=== PATIENT | male | born 1945 | race Caucasian/White ===

== ENCOUNTER 2019-02-01 19:22 | Emergency (ER) | payer OTHER ==
[~2019-02-01] VITALS: Ht 175.3 cm; Wt 72.6 kg
[~2019-02-01 19:22] MED LIST: ASPIR 8181 MG PO; ATORVASTATIN CA10 MG PO; OMEPRAZOLE40 MG PO
--- OUTSIDE RECORDS SUMMARY | 2019-02-01 19:26 | XMS REPORT | Encounter Summary ---
Author Organization Unknown Address [address] [place] [address] Phone [phone] Care Team Providers Care Plate Painter Apprentice Name Role Phone Dr. Garfield Nugent 3 [phone] Garfield Nugent Jr, MD 3 [phone] Elmo Casas 129 [phone] Reason for Visit Quality BMI DEPRESSION FALL; Right leg problem; Advance Care Plan; Annual Alcohol Misuse Screening; AWV Annual Wellness Visit Male (VFP); Quality 65+; Tobacco Cessation Counseling Instructions 1. Adult health examination 2. Peripheral vascular disease 3. Varicose veins of lower extremity with inflammation vascular surgery referral 4. Hyperlipidemia atorvastatin 10 mg tablet CMP, serum or plasma lipid panel, serum 5. Malaise and fatigue CBC w/ auto diff TSH, serum or plasma urinalysis, dipstick 6. Advance directive discussed with patient advance care planning: care instructions 7. Depression screening 8. At risk for falls preventing falls: care instructions 9. Alcohol consumption screening 10. Nicotine dependence stopping smoking: care instructions advised to quit smoking deciding about using medicines to quit smoking 11. Body mass index 20-24 - normal learning about healthy weight Discussion Note: None recorded. Plan of Care Patient Instructions It was good to see you in the office today for your Medicare Annual Wellness Visit. You have been provided some information on healthy nutrition, including a diet rich in fruits and vegetables, minimizing simple carbohydrates, salt, and saturated fats. I want to encourage regular cardiovascular exercise such as walking at least 30 minutes daily, 5 times per week. Please remember to schedule any preventive health measures that we talked about today. You have also been provided education on fall prevention and community- based lifestyle interventions to help reduce health risks and promote healthy living in your Annual Wellness folder. Screening Recommendations 1. Vaccines Pneumococcal: discussed today and information sent with patient in their Annual Wellness health folder Influenza: discussed today and information sent with patient in their Annual Wellness health folder Shingles: discussed today and information sent with patient in their Annual Wellness health folder Tetanus: discussed today and information sent with patient in their Annual Wellness health folder 2. Prostate Screening: No screening necessary 3. Colorectal cancer Screening Colonoscopy: Your next one in: 5 months. Fecal Occult Blood: discussed today and information sent with patient in their Annual Wellness health folder 4. Bone Mass Measurement: No screening necessary 5. Eye Exam Screening: discussed today 6. Cholesterol Screening: Ordered 7. Diabetes Screening: Ordered Patient Instructions on Filing Advance Directives Be sure that you have easy access to your paperwork for your medical power of business attorney and advanced directives. Be sure that the designated person as well as important family members have copies of those forms as well. Please have contact information of your designee readily available. In the event of hospitalization, please bring those important documents with you for reference. "We agreed to the following goals towards reducing your alcohol habits: We agreed to reduce the number of beers by 1/4 by our next follow-up appointment. Handling Urges to drink Remind yourself of your reasons for making a change Talk it through with someone you trust Distract yourself with a healthy, alternative activity Challenge the thought that drives the urge Ride it out without giving in Leave high-risk situations quickly and gracefully" Quitting Tobacco Goals Quitting smoking is important for your health, but it is hard to do. We agreed to the following goals towards reducing your tobacco habits: Today we talked about how you are not thinking about quitting smoking. Since you want to smoke less, but are not ready to quit yet, we agreed that by your next appointment, you would stop smoking during one of your regular smoking times. Since your ready to quit smoking, we agreed that you would smoke your last cigarette on . Shelter Goals: *Permanently quit smoking *Improve lung function *Reduce my risk of getting emphysema, cancer and heart disease What can increase my chances of success for quitting smoking? *Regular exercise *Chew gum or hard candy *Identify triggers that lead to smoking, and establish new strategies for coping with these situations *Keep yourself busy *Contact additional resources for support, such as [employer] *Don't give up, even if you have a setback How can my healthcare team support me in quitting smoking? *Follow up visits to assess progress *Identify resources available to help you quit smoking *Consider medication to increase your chances of successfully quitting smoking *Referral to counseling for additional support Reminders Provider Appointments Est Patient 10/07/2018 9:45AM Garfield Nugent Jr, MD Lab CMP, Serum or Plasma 07/08/2018 [facility] Lipid Panel, Serum 07/08/2018 [facility] CBC W/ Auto Diff 07/08/2018 [facility] TSH, Serum or Plasma 07/08/2018 [facility] Urinalysis, Dipstick 07/08/2018 [facility] (p) Hobby Referral Vascular Surgery Referral 07/08/2018 Procedures None recorded. Surgeries None recorded. Imaging None recorded. Medications Name Start Date Adult Aspirin EC Low Strength 81 mg tablet,delayed release Take 1 tablet every day by oral route for 90 days. atorvastatin 10 mg tablet Take 1 tablet every day by oral route. gabapentin 300 mg capsule Take 2 capsules 3 times a day by oral route for 90 days. omeprazole 40 mg capsule,delayed release TAKE 1 CAPSULE BY MOUTH EVERY DAY Medications Administered None recorded. Vitals Height Weight BMI Blood Pressure 5 ft 9 in 165 lbs 24.4 kg/m2 110/64 mm[Hg] Lab Results None recorded. Allergies Code Code System Name Reaction Severity Status Onset NKDA Problems Name Status Onset Date Source Hyperlipidemia Active 06/15/2017 Internal Hemorrhoids Active 06/15/2017 Gastroesophageal Reflux Disease Active 06/15/2017 Hiatal Hernia Active 06/15/2017 Rosacea Active 06/15/2017 History of Malignant Neoplasm of Colon Active 06/15/2017 Peripheral Vascular Disease Active 04/08/2018 Procedures Date Name Performed by 11/12/2015 Egd Information not available 11/12/2015 Colonoscopy Information not available Hernia Repair Information not available Gastrointestinal Surgery Information not available Vaccine List Vaccine Type influenza, high dose seasonal 11/25/20160.5 mL influenza, unspecified formulation 11/30/2017 pneumococcal conjugate PCV 13 12/20/2015 pneumococcal polysaccharide PPV23 04/24/2013 Tdap 10/31/2016 zoster 10/31/2016 zoster subunit 08/17/2017 10/25/2017 Social History Smoking Status Former Smoker (1 PPW) Past Encounters 07/08/2018 Adult Health Examination; Peripheral Vascular Disease; Varicose Veins of Lower Extremity with Inflammation; Hyperlipidemia; Malaise and Fatigue; Advance Directive Discussed with Patient; Depression Screening; At Risk for Falls; Alcohol Consumption Screening; Nicotine Dependence; Body Mass Index 20-24 - Normal Garfield Nugent Jr, MD: [address] [facility], [address], [place] [address], Ph. History of Present Illness Mini Cog Reported By: Patient Functional Ability: Personal/Social/ Draw a clock and write in the numbers in the correct place, and set the time to 10 minutes after 11 o'clock was completed correctly? Yes, 3 word recall: Your nurse or doctor will ask you to remember 3 words. In 5 minutes, they will ask you to repeat them. Patient recalled 3 words Musculoskeletal Pain Reported By: Patient HPI: Location: pain radiating to the legs right. Quality: dull. Severity: worsening. Duration: present <1 month. Timing: intermittent, pain at night. Alleviating factors: rest. Aggravating factors: movement/positioning. Associated Symptoms: no fever, no weak limbs, no tingling, no numbness of the legs/feet Note:I'd like to talk about what is ahead with your illness and do some thinking in advance about what is important to you so I can make sure we provide you with the care you want-is that okay? {{Yes*|No}} Review of Systems Comprehensive General Adult ROS, Comprehensive Adult Problem ROS Reported By: Patient Cardiovascular: Cardiovascular: no chest pain Gastrointestinal: Gastrointestinal: normal appetite Musculoskeletal: Musculoskeletal: no soft tissue swelling, no joint swelling, myalgia Integumentary: Skin: no redness, no skin lesions, no swelling Neurologic: Neurologic: no weakness, no numbness. Neuro: no tingling, burning Hematologic/Lymphatic: Hematologic/Lymphatic no bruising Constitutional: Constitutional: no significant weight change Physical Exam Lower Leg, Diabetic Foot Exam MG, Musculoskeletal and Joint Exam, Neurology Exam, Diabetes, Diabetic Foot Exam, Extremities Daily Note, Endo: Diabetic Foot Exam MG, Foot Only (Brief) Reported By: Patient Constitutional: General Appearance: healthy-appearing, normal body habitus, NAD Gait and Station: Appearance: normal gait, no limp, ambulates with no assistive devices, tiptoe normal, heel walk normal, tandem gait normal, station normal Cardiovascular System: Arterial Pulses Right: dorsalis pedis diminished. Arterial Pulses Left: dorsalis pedis diminished. Edema Right: none. Edema Left: none. Varicosities Right: varicosities. Varicosities Left: varicosities. Varicosities Right: not painful to touch, present, inflammation, location: lower leg. Varicosities Left: no inflammation, not painful to touch, present, location: lower leg Skin: Right Lower Extremity: thin. Left Lower Extremity: thin. Skin Foot Right normal. Skin Foot Left normal. Signs of Infection Right no. Signs of Infection Left no Psychiatric: Orientation: oriented to time, oriented to place, oriented to person. Mood and Affect: normal affect, normal mood, current events, past history Musculoskeletal: Musculoskeletal System normal range of motion in all peripheral joints Constitutional: Weight: well-nourished. Ambulation: ambulates independently Head: Size/Trauma: normocephalic Mental Status: Language: has spontaneous speech. Memory: recent memory intact, remote memory intact
--- OUTSIDE RECORDS SUMMARY | 2019-02-01 19:26 | XMS REPORT | Encounter Summary ---
Author Organization Unknown Address [address] [place] [address] Phone [phone] Care Team Providers Care Probation Supervisor Name Role Phone Dr. Garfield Nugent 3 [phone] Garfield Nugent Jr, MD 3 [phone] Elmo Vera [facility] 129 [phone] Reason for Visit hyperlipidemia; dizziness Instructions 1. Hyperlipidemia atorvastatin 10 mg tablet 2. Gastroesophageal reflux disease omeprazole 40 mg capsule,delayed release 3. Allergic rhinitis fluticasone propionate 50 mcg/actuation nasal spray,suspension montelukast 10 mg tablet 4. Vertigo vertigo: care instructions 5. Eosinophil count raised 6. Peripheral vascular disease Discussion Note: None recorded. Plan of Care Reminders Provider Appointments None recorded. Lab None recorded. Referral None recorded. Procedures None recorded. Surgeries None recorded. Imaging None recorded. Medications Name Start Date Adult Aspirin EC Low Strength 81 mg tablet,delayed release Take 1 tablet every day by oral route for 90 days. atorvastatin 10 mg tablet Take 1 tablet every day by oral route. fluticasone propionate 50 mcg/actuation nasal spray,suspension Burton 1 spray every day by intranasal route for 90 days. gabapentin 300 mg capsule Take 2 capsules 3 times a day by oral route for 90 days. montelukast 10 mg tablet Take 1 tablet every day by oral route for 90 days. omeprazole 40 mg capsule,delayed release Take 1 capsule every day by oral route. Medications Administered None recorded. Vitals Height Weight BMI Blood Pressure 5 ft 9 in 166 lbs 24.5 kg/m2 122/72 mm[Hg] Lab Results None recorded. Allergies Code Code System Name Reaction Severity Status Onset NKDA Problems Name Status Onset Date Source Hyperlipidemia Active 06/15/2017 Internal Hemorrhoids Active 06/15/2017 Gastroesophageal Reflux Disease Active 06/15/2017 Hiatal Hernia Active 06/15/2017 Rosacea Active 06/15/2017 History of Malignant Neoplasm of Colon Active 06/15/2017 Peripheral Vascular Disease Active 04/08/2018 Eosinophil Count Raised Active 10/07/2018 Allergic Rhinitis Active 10/07/2018 Procedures Date Name Performed by 11/12/2015 Egd Information not available Hernia Repair Information not available Gastrointestinal Surgery Information not available Colonoscopy Information not available Vaccine List Vaccine Type influenza, high dose seasonal 11/25/20160.5 mL influenza, unspecified formulation 11/30/2017 pneumococcal conjugate PCV 13 12/20/2015 pneumococcal polysaccharide PPV23 04/24/2013 Tdap 10/31/2016 zoster 10/31/2016 zoster subunit 08/17/2017 10/25/2017 Social History Tobacco Smoking Status Former Smoker (1 PPW) Past Encounters 10/07/2018 Hyperlipidemia; Gastroesophageal Reflux Disease; Allergic Rhinitis; Vertigo; Eosinophil Count Raised; Peripheral Vascular Disease Garfield Nugent Jr, MD: [id number] [facility], [facility] [address], [place] [address], Ph. History of Present Illness Hypertension Reported By: Patient HPI: Severity: mild. Onset/Timing: gradual onset. Alleviating Factors: relieved with rest, medication. Self Care: not under emotional stress, blood pressure goal: 130/80. Associated Symptoms: no shortness of breath, no fatigue, no decline in exercise capacity Hyperlipidemia Reported By: Patient HPI: Type of hyperlipidemia: combined, hypercholesterolemia. Duration: chronic. Current Therapy: currently taking: atorvastatin, last LDL level: 96 date: 96. Compliance: compliant. Complications: no coronary artery disease Review of Systems Comprehensive General Adult ROS Reported By: Patient Constitutional: Constitutional: no significant weight gain, no significant weight loss Cardiovascular: Cardiovascular: no chest pain, no shortness of breath when walking Respiratory: Respiratory: no cough, no wheezing, no shortness of breath Endocrine: Endocrine: no fatigue Physical Exam Cardiology Exam Reported By: Patient Constitutional: General Appearance: well-nourished, well-developed, appears stated age. Level of Distress: comfortable Psychiatric: Mental Status: alert, normal affect. Orientation: oriented to time, place, and person. Insight: good judgment Lungs: Respiratory Effort: unlabored. Chest Exam: no chest wall tenderness. Auscultation: clear, no wheezing, no rales, no rhonchi Cardiovascular: Rate And Rhythm: regular. Heart Sounds: normal S1, physiologically split S2, no rub, no gallop, no click. Systolic Murmur: not heard. Diastolic Murmur: not heard. Extremities: no cyanosis, no edema, no peripheral signs of emboli Peripheral Pulses: Pulses: full and equal in all extremities except if noted Skin: Inspection and Palpation: warm and dry
--- OUTSIDE RECORDS SUMMARY | 2019-02-01 19:26 | XMS REPORT | Encounter Summary ---
Author Organization Unknown Address [address] [place] [address] Phone [phone] Care Team Providers Care Entrepreneur Name Role Phone Dr. Garfield Nugent 3 [phone] Garfield Nugent Jr, MD 3 [phone] Elmo Vera [facility] 129 [phone] Reason for Visit hyperlipidemia; arthritis Instructions 1. Hyperlipidemia atorvastatin 10 mg tablet high cholesterol: care instructions 2. History of malignant neoplasm of colon gastroenterology referral 3. Multiple joint pain Tylenol-Codeine #3 300 mg-30 mg tablet gabapentin 300 mg capsule 4. Screening for cardiovascular system disease ankle brachial index 5. Peripheral vascular disease Discussion Note: None recorded. Plan of Care Reminders Provider Appointments Return to Office on or around 07/06/2018 Garfield Nugent Jr, MD Lab None recorded. Referral Gastroenterology Referral 04/08/2018 Nancy Johnson MD Procedures None recorded. Surgeries None recorded. Imaging Ankle Brachial Index 04/08/2018 [facility] ([facility] Medications Name Start Date Adult Aspirin EC [...] TAKE 1 CAPSULE BY MOUTH EVERY DAY Tylenol-Codeine #3 300 mg-30 mg tablet Take 1 tablet twice a day by oral route as needed for 15 days. for breakthrough pain. Medications Administered None recorded. Vitals Height Weight BMI Blood Pressure 5 ft 9 in 162 lbs 23.9 kg/m2 134/62 mm[Hg] Lab Results None recorded. Allergies Code [...] not available Gastrointestinal Surgery Information not available 04/08/2018 Ankle Brachial Index [facility] ([facility]) [facility] [address] [facility] [address] [place] [address] (Work [address]) Vaccine List Vaccine Type influenza, high dose seasonal 11/25/20160.5 mL influenza, unspecified formulation 11/30/2017 pneumococcal conjugate PCV 13 12/20/2015 pneumococcal polysaccharide PPV23 04/24/2013 Tdap 10/31/2016 zoster 10/31/2016 zoster subunit 08/17/2017 10/25/2017 Social History Smoking Status Former Smoker (1 PPW) Past Encounters 04/08/2018 Hyperlipidemia; History of Malignant Neoplasm of Colon; Multiple Joint Pain; Screening for Cardiovascular System Disease; Peripheral Vascular Disease Garfield Nugent Jr, MD: [address] [facility] [address], [place] [address], Ph. History of Present Illness Hypertension Reported [...] Therapy: currently taking: atorvastatin, last LDL level: 98 date: 98. Compliance: compliant. Complications: no coronary artery disease Musculoskeletal Pain Reported By: Patient HPI: Location: pain is not radiating, bilateral shoulder, bilateral elbow, bilateral hip. Quality: dull. Severity: worsening. Duration: present for >12 months. Timing: constant, intermittent. Alleviating factors: rest. Aggravating factors: movement/positioning. Associated Symptoms: no fever, no weak limbs, no tingling, no numbness of the legs/feet Review of Systems Comprehensive General Adult ROS, Comprehensive Adult Problem ROS Reported By: Patient Constitutional: Constitutional: no significant weight gain, no significant weight loss Cardiovascular: Cardiovascular: no chest pain, no shortness of breath when walking Respiratory: Respiratory: no cough, no wheezing, no shortness of breath Gastrointestinal: Gastrointestinal: normal appetite Musculoskeletal: Musculoskeletal: no swelling in the extremities, no soft tissue swelling, no joint swelling, arthralgias/joint pain, myalgia Integumentary: Skin: no redness, no skin lesions, no swelling Neurologic: Neurologic: no weakness, no numbness. Neuro: no tingling Endocrine: Endocrine: no fatigue Hematologic/Lymphatic: Hematologic/Lymphatic no bruising Constitutional: Constitutional: no significant weight change Physical Exam Musculoskeletal and Joint Exam, Cardiology Exam Reported By: Patient Musculoskeletal System: Musculoskeletal System normal range of motion in all peripheral joints. Right Shoulder: no objective synovitis, no erythema, no warmth, tenderness, pain on palpation, reduced ROM. Right Elbow: good ROM, no objective synovitis, no warmth, no erythema, tenderness. Left Elbow: good ROM, no objective synovitis, no warmth, no erythema, tenderness. Right Hip: tenderness, pain on palpation. Left Hip: tenderness, pain on palpation Constitutional: General Appearance: well-nourished, well-developed, appears stated age. Level of Distress: comfortable Psychiatric: Mental Status: alert, normal affect. Orientation: oriented to time, place, and person. Insight: good judgment Lungs: Respiratory Effort: unlabored. Chest Exam: normal curvature, no thoracic deformity, no chest wall tenderness. Auscultation: clear, no wheezing, no rales, no rhonchi Cardiovascular: Rate And Rhythm: regular. Heart Sounds: normal S1, physiologically split S2, no rub, no gallop, no click. Systolic Murmur: not heard. Diastolic Murmur: not heard. Extremities: no cyanosis, no edema, no peripheral signs of emboli Peripheral Pulses: Pulses: full and equal in all extremities except if noted. Radial Pulse: normal Skin: Inspection and Palpation: warm and dry. Nails: no clubbing
--- OUTSIDE RECORDS SUMMARY | 2019-02-01 19:26 | XMS REPORT ---
Author Organization Unknown Address [address] [place] [address] Phone [phone] Care Team Providers Care Driving Instructor Name Role Phone JOZEF MARADIAGA JR, MD 3 [phone] MELY GASPAR 129 [phone] Allergies Code Code System Name Reaction Severity Status Onset NKDA Medications Name Status Start Date Stop Date Adult Aspirin EC Low Strength 81 mg tablet,delayed release Take 1 tablet every day by oral route for 90 days. Active Not available atorvastatin 10 mg tablet Active Not available Boostrix Tdap 2.5 Lf unit-8 mcg-5 Lf/0.5 mL intramuscular suspension Completed 06/15/2017 cefuroxime axetil 250 mg tablet Completed 06/15/2017 doxycycline hyclate 100 mg capsule Completed 06/15/2017 Fluzone High-Dose 4742-2977 (PF) 180 mcg/0.5 mL intramuscular syringe Completed 06/15/2017 gabapentin 300 mg capsule Completed 06/15/2017 hydrocodone 5 mg-acetaminophen 325 mg tablet Completed 06/15/2017 Lyrica 100 mg capsule Completed 06/15/2017 Lyrica 25 mg capsule Completed 06/15/2017 metronidazole 0.75 % topical cream Apply 1 application every day by topical route as needed for 20 days. Active Not available omeprazole 40 mg capsule,delayed release Take 1 capsule every day by oral route for 90 days. Active Not available prednisone 5 mg tablet Completed 06/15/2017 Prevnar 13 (PF) 0.5 mL intramuscular syringe Completed 06/15/2017 tramadol 50 mg tablet Completed 06/15/2017 Zostavax (PF) 19,400 unit/0.65 mL subcutaneous suspension Completed 06/15/2017 Problems Name Status Onset Date Source Hyperlipidemia Active 06/15/2017 Internal Hemorrhoids Active 06/15/2017 Gastroesophageal Reflux Disease Active 06/15/2017 Hiatal Hernia Active 06/15/2017 Rosacea Active 06/15/2017 History of Malignant Neoplasm of Colon Active 06/15/2017 Procedures Date Name Performed by 11/12/2015 Egd Information not available 11/12/2015 Colonoscopy Notes: REPEAT IN 3 YEARS, POLYPECTOMY. Information not available Hernia Repair Notes: ABDOMINAL Information not available Gastrointestinal Surgery Notes: COLON SURGERY--BOWEL RECONSTRUCTION. Information not available 06/15/2017 US, Abdominal Aorta [facility] [address] [place], [place] [id number] (Work Place) Lab Results None recorded. Past Encounters 06/15/2017 Adult Health Examination; Body Mass Index 20-24 - Normal; Advance Directive Discussed with Patient; Depression Screening; At Risk for Falls; Screening for Disorder; Screening for Malignant Neoplasm of Prostate; Hyperlipidemia; Gastroesophageal Reflux Disease; Abdominal Aortic Aneurysm Screening; History of Malignant Neoplasm of Colon Jozef Maradiaga Jr, MD: [address], [address], [place] [address], Ph. Social History Smoking Status Former Smoker (1 PPW) Notes: MAYBE 1 CIGARRETTE A MONTH. Vaccine List Vaccine Type influenza, high dose seasonal 11/25/20160.5 mL pneumococcal conjugate PCV 13 12/20/2015 pneumococcal polysaccharide PPV23 04/24/2013 Tdap 10/31/2016 zoster 10/31/2016 Plan of Care Patient Instructions It was [...] risks and promote healthy living in your [employer] folder. Screening Recommendations 1. Vaccines Pneumococcal: discussed today and information sent with patient in their [employer] health folder Influenza: discussed today and information sent with patient in their [employer] health folder Shingles: discussed today and information sent with patient in their [employer] health folder Tetanus: discussed today and information sent with patient in their [employer] health folder 2. Prostate Screening: Ordered 3. Colorectal cancer Screening Colonoscopy: discussed today and information sent with patient in their [employer] health folder Fecal Occult Blood: discussed today and information sent with patient in their [employer] health folder 4. Bone Mass Measurement: discussed today 5. Eye Exam Screening: discussed today 6. Cholesterol Screening: Ordered 7. Diabetes Screening: Ordered Reminders Provider Appointments None recorded. Lab None recorded. Referral None recorded. Procedures None recorded. Surgeries None recorded. Imaging None recorded. Vitals Height Weight BMI Blood Pressure 5 ft 9 in 160 lbs 23.6 kg/m2 110/66 mm[Hg]
[2019-02-01] MEDS ORDERED: KETOROLAC TROMETHAMINE 10 MG TAB PO ONE (19:30)
[2019-02-01] MEDS ORDERED: DOXYCYCLINE HYCLATE TABLET 100 MG TAB PO ONE (19:30)
[2019-02-01] MEDS ORDERED: TETANUS/DIPHTHERIA TOX ADULT 0.5 ML SYR IM ONE (19:30)
[2019-02-01] MEDS ORDERED: CEFAZOLIN SOD 1 GM VIAL IM ONE (20:00)
[2019-02-01] MEDS ORDERED: LIDOCAINE HCL 1% LOCAL INJ 20 ML VIAL INJ ONE (20:00)
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
[2019-02-01] MEDS ORDERED: NEOMYCIN/POLYMYX/BACITR OINT 0.9 GM PKT TOP ONE (20:45)
[2019-02-01 20:58] VITALS: BP 153/76
== END 2019-02-01 21:12 | disposition home or self-care (01) ==
LOC: ER 19:22
DX: S62.522B Displaced fracture of distal phalanx of left thumb, initial encounter for open fracture (principal); S60.012A Contusion of left thumb without damage to nail, initial encounter; W20.8XXA Other cause of strike by thrown, projected or falling object, initial encounter; Y92.008 Other place in unspecified non-institutional (private) residence as the place of occurrence of the external cause; E78.5 Hyperlipidemia, unspecified; Z85.038 Personal history of other malignant neoplasm of large intestine
CPT/HCPCS: 12001; 73130; 90471; 90714; 99283; J0690; J2001

== ENCOUNTER → 2019-05-10 | Day surgery (SDC) | payer MEDICARE ==
[2019-05-08 11:39] LABS: BASOPHILS # (AUTO) 0.1 (0.0-0.1); BASOPHILS % 0.9 % (0.0-1.0); EOSINOPHILS # (AUTO) 0.8 (0.0-0.4); EOSINOPHILS % 14.6 % (0.0-6.0); HEMATOCRIT 39.9 % (38.2-49.6); HEMOGLOBIN 12.5 g/dL (14.0-18.0); LYMPHOCYTES # (AUTO) 1.5 (1.0-3.2); LYMPHOCYTES % 26.2 % (18.0-39.1); MEAN CORPUSCULAR HEMOGLOBIN 28.7 pg (28-32); MEAN CORPUSCULAR HGB CONC 31.3 g/dL (31-35); MEAN CORPUSCULAR VOLUME 91.5 fL (81-99); MONOCYTES # (AUTO) 0.6 (0.2-0.8); MONOCYTES % 11.4 % (4.4-11.3); NEUTROPHILS # (AUTO) 2.6 (2.1-6.9); NEUTROPHILS % 46.9 % (38.7-80.0); PLATELET COUNT 166 x10e3/uL (140-360); RED BLOOD COUNT 4.36 x10e6/uL (4.3-5.7)
[2019-05-08 12:01] LABS: ALANINE AMINOTRANSFERASE 8 IU/L (0-55); ALBUMIN 3.7 g/dL (3.5-5.0); ALBUMIN/GLOBULIN RATIO 0.9 (0.8-2.0); ALKALINE PHOSPHATASE 66 IU/L (40-150); ANION GAP 9.4 mmol/L (8-16); BLOOD UREA NITROGEN 15 mg/dL (7-26); BUN/CREATININE RATIO 17 (6-25); CALCIUM 8.8 mg/dL (8.4-10.2); CARBON DIOXIDE 27 mmol/L (22-29); CHLORIDE 108 mmol/L (98-107); CREATININE, SERUM 0.87 mg/dL (0.72-1.25); EST GLOMERULAR FILTRATION RATE > 60 ML/MIN (60-); GLUCOSE 92 mg/dL (74-118); POTASSIUM 4.4 mmol/L (3.5-5.1); SODIUM 140 mmol/L (136-145)
[2019-05-10] VITALS (12 sets, daily range): BP systolic 124–147; BP diastolic 62–88
[~2019-05-10] VITALS: Ht 175.3 cm; Wt 73.9 kg
[~2019-05-10] MED LIST changes: +FENTANYL CITRATE/PF 100MCG/2 ML INJ ONE; +GABAPENTIN300 MG PO; +HEPARIN SOD (PORCINE) 1000 UNIT/ML 30ML ONE; +HEPARIN SOD/SOD CHLORIDE 2,000 ML ONE; +IOPAMIDOL 370 MG/ML 200 ML INFUS..BTL INJ ONE; +LIDOCAINE HCL 2% LOCAL 20 ML VIAL ONE; +MIDAZOLAM HCL 2 MG/2 ML VIAL ONE; +SODIUM CHLORIDE 0.9% 1000ML 1,000 ML ONE; +VERAPAMIL HCL 2.5 MG/ML 2 ML VIAL ONE
--- OUTSIDE RECORDS SUMMARY | 2019-05-10 07:22 | XMS REPORT | Encounter Summary ---
Author Organization Unknown Address [address] [place] [address] Phone [phone] Care Team Providers Care Aluminum Siding Installer Name Role Phone Dr. Garfield Nugent 3 [phone] Garfield Nugent Jr, MD 3 [phone] [place] 129 [phone] Reason for Visit chest pain; hyperlipidemia; Annual Depression Screening; AWV Annual Wellness Visit Male (VFP); Advance Care Plan; Annual Alcohol Misuse Screening; other - see typed reason Instructions 1. Adult health examination 2. Advance directive discussed with patient advance care planning: care instructions 3. Depression screening learning about depression 4. Alcohol consumption screening learning about alcohol misuse 5. Body mass index 20-24 - normal 6. Gastroesophageal reflux disease omeprazole 40 mg capsule,delayed release 7. Peripheral vascular disease 8. Hyperlipidemia high cholesterol: care instructions atorvastatin 10 mg tablet 9. Chest pain cardiology referral electrocardiogram 10. Family history of Cardiovascular disease Discussion Note: None recorded. Plan of [...] Annual Wellness folder. Screening Recommendations 1. Vaccines Pneumonia: No further need Influenza: Next Fall 2. Colorectal Cancer Screening: Colonoscopy (every 3 years) 3. Annual Prostate Screening 4. Annual Depression Screening 5. Annual Alcohol Screening 6. Annual Fall Risk Screening 7. Annual Health Risk Assessment Patient Instructions on Filing Advance Directives Be sure that you have easy access to your paperwork for your medical power of thread clipper and advanced directives. Be sure that the designated person as well as important family members have copies of those forms as well. Please have contact information of your designee readily available. In the event of hospitalization, please bring those important documents with you for reference. Reminders Provider Appointments None recorded. Lab None recorded. Referral Cardiology Referral 03/27/2019 Nilo Pham MD Procedures None recorded. Surgeries None recorded. Imaging Electrocardiogram 03/27/2019 [facility] Medications Name Start Date Adult Aspirin EC Low Strength 81 mg tablet,delayed release Take 1 tablet every day by oral route for 90 days. atorvastatin 10 mg tablet Take 1 tablet every day by oral route for 90 days. fluticasone propionate 50 mcg/actuation nasal spray,suspension [place] 1 spray every day by intranasal route for 90 days. gabapentin 300 mg capsule Take 2 capsules 3 times a day by oral route for 90 days. montelukast 10 mg tablet TAKE 1 TABLET BY MOUTH EVERY DAY omeprazole 40 mg capsule,delayed release Take 1 capsule every day by oral route for 90 days. Medications Administered None recorded. Vitals Height Weight BMI Blood Pressure 5 ft 9 in 166.4 lbs 24.6 kg/m2 124/72 mm[Hg] Results Lab Results None recorded. Allergies Code Code [...] Information not available Colonoscopy Information not available 03/27/2019 Electrocardiogram [facility] [address] [place] [address] (Work Place) Vaccine List Vaccine Type influenza, high dose seasonal 11/25/20160.5 mL influenza, injectable, quadrivalent 11/13/2018 influenza, unspecified formulation 11/30/2017 pneumococcal conjugate PCV 13 12/20/2015 pneumococcal polysaccharide PPV23 04/24/2013 Tdap 10/31/2016 02/01/2019 zoster live 10/31/2016 zoster recombinant 08/17/2017 10/25/2017 Social History Tobacco Smoking Status Former Smoker (1 PPW) Past Encounters 03/27/2019 Adult Health Examination; Advance Directive Discussed with Patient; Depression Screening; Alcohol Consumption Screening; Body Mass Index 20-24 - Normal; Gastroesophageal Reflux Disease; Peripheral Vascular Disease; Hyperlipidemia; Chest Pain; Family History of Cardiovascular Disease Garfield Nugent Jr, MD: [address] [facility], [address], [place] [address], Ph. History of Present Illness Hypertension Reported By: Patient HPI: Severity: mild. Onset/Timing: gradual onset. Alleviating Factors: relieved with rest, medication. Self Care: not under emotional stress, blood pressure goal: 130/80. Associated Symptoms: no shortness of breath, no fatigue, no decline in exercise capacity Mini Cog Reported By: Patient Functional Ability: Personal/Social/ Draw a clock and write in the numbers in the correct place, and set the time to 10 minutes after 11 o'clock was completed correctly? Yes, 3 word recall: Your nurse or doctor will ask you to remember 3 words. In 5 minutes, they will ask you to repeat them. Patient recalled 3 words Chest Pain Reported By: Patient HPI: Location: radiates to the left arm, left arm, midsternal. Quality: pressure, tightness. Severity: moderate. Duration: lasts minutes. Onset/Timing: abrupt onset without warning. Context: exertional, occurs with physical stress. Alleviating Factors: nothing gives relief. Aggravating Factors: worse with activity. Associated Symptoms: no dyspnea, no resting episodes, no associated palpitations, no associated dizziness, decrease in exercise capacity Hyperlipidemia Reported By: Patient HPI: Type of hyperlipidemia: combined, hypercholesterolemia. Duration: chronic. Current Therapy: currently taking: atorvastatin, last LDL level: 96 date: 96. Compliance: compliant. Complications: no coronary artery disease Opioid Use Assessment Reported By: Patient Opioid Use Assessment:: Current Use of Opioids : no use of opioids (no further questions required). Has the patient tried other pain management modalities: no Note:I'd like to talk about what is ahead with your illness and do some thinking in advance about what is important to you so I can make sure we provide you with the care you want-is that okay? {{Yes*|No}} Review of Systems Comprehensive General Adult ROS Reported By: Patient Constitutional: Constitutional: no significant weight gain, no significant weight loss Cardiovascular: Cardiovascular: no shortness of breath when walking, no shortness of breath when lying down, no known heart murmur, no lightheadedness, chest pain on exertion, arm pain on exertion Respiratory: Respiratory: no cough, no wheezing, no [...] noted Skin: Inspection and Palpation: warm and dry"
--- OUTSIDE RECORDS SUMMARY | 2019-05-10 07:22 | XMS REPORT | Encounter Summary ---
Author Organization Unknown Address [address] [place] [address] Phone [phone] Care Team Providers Care Excellence Specialist Name Role Phone Dr. Garfield Nugent 3 [phone] Garfield Nugent Jr, MD 3 [phone] Elmo Vera [facility] 129 [phone] Reason for Visit finger pain Instructions 1. Fracture of distal phalanx of finger plastic surgery referral tramadol 50 mg tablet Discussion Note: None recorded. Patient educational handouts: No information available. Plan of Care Reminders Provider Appointments None recorded. Lab None recorded. Referral Plastic Surgery Referral 02/16/2019 Procedures None recorded. Surgeries None recorded. Imaging None recorded. Medications Name Start Date Adult Aspirin EC Low Strength 81 mg tablet,delayed release Take 1 tablet every day by oral route for 90 days. atorvastatin 10 mg tablet TAKE 1 TABLET BY MOUTH EVERY DAY fluticasone propionate 50 mcg/actuation nasal spray,suspension [place] 1 spray every day by intranasal route for 90 days. gabapentin 300 mg capsule Take 2 capsules 3 times a day by oral route for 90 days. montelukast 10 mg tablet TAKE 1 TABLET BY MOUTH EVERY DAY omeprazole 40 mg capsule,delayed release Take 1 capsule every day by oral route. tramadol 50 mg tablet Take 1 tablet 3 times a day by oral route for 15 days. Medications Administered None recorded. Vitals Height Weight BMI Blood Pressure 5 ft 9 in 167 lbs 24.7 kg/m2 (1) 144/70 mm[Hg] (2) 142/72 mm[Hg] Results Lab Results None recorded. Allergies [...] polysaccharide PPV23 04/24/2013 Tdap 10/31/2016 02/01/2019 zoster 10/31/2016 zoster subunit 08/17/2017 10/25/2017 Social History Tobacco Smoking Status Former Smoker (1 PPW) Past Encounters 02/16/2019 Fracture of Distal Phalanx of Finger Garfield Nugent Jr, MD: [address] [facility], [facility] [address], [place] [address], Ph. History of Present Illness Musculoskeletal Pain Reported By: Patient HPI: Location: pain is not radiating. Quality: dull. Severity: worsening. Duration: present <1 month. Timing: constant. Alleviating factors: rest. Aggravating factors: movement/positioning. Associated Symptoms: no fever, no weak limbs, no tingling, no numbness of the legs/feet Review of Systems Comprehensive Adult Problem ROS Reported By: Patient Constitutional: Constitutional: no significant weight change, good appetite Cardiovascular: Cardiovascular: no chest pain Musculoskeletal: Musculoskeletal: soft tissue swelling, joint swelling, myalgia Skin: Skin: no redness, no skin lesions, no swelling, no bruising Neurological symptoms: Neuro: no numbness, no weakness, no tingling Physical Exam Musculoskeletal and Joint Exam Reported By: Patient Musculoskeletal System: Musculoskeletal System normal range of motion in all peripheral joints. Left Hand: no warmth, DIP swelling, tenderness
--- OUTSIDE RECORDS SUMMARY | 2019-05-10 07:22 | XMS REPORT | Encounter Summary ---
Author Organization Unknown Address [address] [place] [address] Phone [phone] Care Team Providers Care Stove Cleaner Name Role Phone Dr. Garfield Nugent 3 [phone] Garfield Nugent Jr, MD 3 [phone] Elmo Vera [facility] 129 [phone] Reason for Visit finger pain Instructions 1. [...] DAY fluticasone propionate 50 mcg/actuation nasal spray,suspension [place] 1 spray every day by intranasal route [...] kg/m2 (1) 144/70 mm[Hg] (2) 142/72 mm[Hg] (3) 120/70 mm[Hg] Results Lab Results None recorded. Allergies [...] Phalanx of Finger Garfield Nugent Jr, MD: [address] [facility], [address], [place] [address], Ph. History of Present Illness Musculoskeletal Pain [...]
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
--- NOTE | 2019-05-10 15:38 | NUR ---
1538p Received pt to room #10 Identifierx2 ,bedside report received from Trung SERRA. Alert oriented and appropriate, PERRLA, respirations even and unlabored to room air. Pulses x4 extremities equal and strong. Pedal pulses PTx2 Doppler 2++ no palpable DP x2 . Cap fill brisk < 3 sec. Skin warm and dry integrity appears D/I. IV 20g to left hand at 100chr via iv controller. Presents healthy w/o s/s of infiltration or complaint. Abdomen soft and supple. pt offered toileting, denies need to urinate or defecate. No personal affects with patient. Family at bedside. Pt and family verbalizes understanding of POC. Pt [facility] no fix Dr Guzman transferring to [facility] via ambulance for CV surgical evaluation multiple vessel occlusion. Currently w/o complaint of pain or need. ds/rn
--- NOTE | 2019-05-10 16:35 | NUR ---
1635p RADIAL Compression removal: Initial Cuff volume 12 cc 1635p -2cc Removed No hematoma/bleeding noted with normal neurovascular function. 1650 -5cc Removed No hematoma/ bleeding noted with normal neurovascular function. 1700 -5 cc Removed No hematoma/bleeding noted with normal neurovascular function. Air removal completed. Stasis achieved sterile 2x2,Tegaderm, Coban dressing No hematoma, bleeding noted with normal neurovascular function. Wrist splint in place. Pt instructed on POC. Ds/Rn
--- NOTE | 2019-05-10 18:00 | NUR ---
1800p Received completion MOT per Estephania, RN House Supv. Report phoned to Mikaela MCGOWAN Rn charge nurse. Ambulance packet prepared. Pt remain stable vs Rt Tr band site with wrist support No gross issues pain,pallor,pressure or dysthymia. Normal neuro vascular function to rt arm. Patient's ambulance arrival scheduled 1900pm. Pt tolerated light meal and is back to baseline orientation. went home but informed receiving facility of name and home number. Denies c/o at this time. ds/pranav
--- NOTE | 2019-05-10 19:15 | NUR ---
191 [facility] ambulance here hand off completed to MSE with paperwork vs remains stable. No gross issues pain,pallor pressure or dysthymia.Rt hand with adequate neuro vascular function. Arm support remains in place. ds/rn
--- NOTE | 2019-05-10 23:40 | Operative Report ---
DATE OF PROCEDURE: 05/10/2019 SURGEON: Babatunde Guzman MD INDICATION FOR PROCEDURE: Typical angina, positive stress test. PREPROCEDURE ASSESSMENT: The risks, benefits, and alternatives of treatment were explained to the patient prior to the procedure and the patient was deemed to be an appropriate candidate for moderate sedation based on review of medicine history, social history, and prior experiences of anesthesia. Informed consent was obtained and documented in the medical record prior to the procedure. DESCRIPTION OF PROCEDURE: The patient was brought to the cardiac catheterization laboratory in the fasting state. Right wrist was prepped and draped in sterile fashion. A 6-Dominican Slender sheath was inserted in the right radial artery using modified Seldinger technique. Coronary angiography was performed using a 5-Dominican Ambarella radial catheter. Left heart catheterization was performed using a 6-Dominican angled pigtail catheter with pain injection for LV angiography. All catheters were removed over a wire. Multiple orthogonal views were taken of each coronary artery. There were no immediate complications. Sheath was removed and exit site was closed using a TR band device. SIGNIFICANT FINDINGS: Left main coronary artery. There is a large chunk of calcium in the mid left main coronary artery resulting in large 70% stenosis with VALERI-3 flow. [place] of the LAD and circumflex do not appear to be severely involved. LAD, is a large vessel, wraps around the apex with several 1 mm diagonal branches and several large septal branches. There is diffuse 40% plaquing and calcification at the proximal and mid LAD with focal 80% stenosis at proximal and 70% stenosis in the mid LAD. Distal LAD is at least 3 mm vessel with excellent bypass . Left circumflex is a medium-sized nondominant artery. Two significant OM branches. About 70% stenosis of proximal OM1 and 70% stenosis of the mid left circumflex after the origination of the OM1 local and there were 2.5 mm branches with some tortuosity. RCA is the large dominant RCA. There is a 99% stenosis of [id number] RCA resulting in VALERI-1 flow distally. There is competitive flow from significant collateral formation from the left coronary system. Septal collaterals and apical collaterals filled PDA and collaterals from the distal left circumflex failed the PL system and prolonged cineangiography in the distal PDA and PL vessel appeared to be about 2 to 2.5 mm likely underfilled. Left heart catheterization shows LV end diastolic pressure of 18 mmHg. LV ejection fraction about 40% to 45%. with no significant gradient across the aortic valve. GRAFTS AND IMPLANTS: None. SPECIMAN REMOVED: None. ESTIMATED BLOOD LOSS: 10 mL. COMPLICATIONS: None. FINAL RECOMMENDATIONS: 1. Transfer to outside hospital for coronary artery bypass graft surgery. 2. Continue optimal medical therapy and risk factor control. MD JEFERSON Galeana/MODL /[id number]
== END | disposition short-term general hospital (02) ==
LOC: CATH LAB 07:20
PROVIDERS: ATTEND Internal Medicine
DX: I25.118 Atherosclerotic heart disease of native coronary artery with other forms of angina pectoris (principal); E78.00 Pure hypercholesterolemia, unspecified; I10 Essential (primary) hypertension; Z01.812 Encounter for preprocedural laboratory examination; Z88.5 Allergy status to narcotic agent
CPT/HCPCS: 36415; 80053; 85025; 93458; C1887; J1644; J2001; J2250; J3010; J7030; Q9967; 99152